=== PATIENT | male | born 1945 | race Caucasian/White ===

== ENCOUNTER 2017-05-21 18:51 | Emergency (ER) | payer MEDICARE, BC ==
--- NOTE | 2017-05-21 20:04 | ER PHYSICIAN DOCUMENTATION ---
Physician Documentation [facility] Name:Ronnell Hale Age:71 yrs Sex:Male :1945 Arrival Date:05/21/2017 Time:18:51 Bed3 Private MD:Physician, No ED Olayinka Jaffe Disposition: 05/21/17 19:47 Discharged to Home/Self Care. Impression: BPH (Benign Prostatic Hypertrophy), Anal Fissure. - Condition is Good. - Discharge Instructions: Adenoma, Prostatic - BPH (Enlarged Prostate). - Prescriptions for Flomax 0.4 mg Oral Capsule, Sust. Release 24 hr - take 1 capsule by ORAL route once daily 1/2 hour following the same meal each day; 30 capsule. - Medical Reconciliation form form. - Follow up: Seferino Tillman MD; When: 1 week; Reason: Recheck today's complaints, Continuance of care. - Problem is new. - Symptoms are resolved. - Notes: Drink plenty of fluids.... Take Flomax as directed. Use Tucks Medicated Pads for cleansing the anal region and pain relief.... Use Proctosol-HC Cream to anal region two times a day for 7 days. Continue using Metamucil to keep your stools soft. Eat prunes and Bran Bread / Cereal. HPI: 05/21 18:53 This 71 yrs old Male presents to ER via Walk In with complaints of difficulty cd urinating, hx of enlarged prostratr. 18:53 The patient presents with urinary symptoms, dribbling of urine, retention, difficulty cd urinating. He also complains of rectal pain due to a hemorrhoid and constipation. Onset: The symptom(s)/episode began/occurred acutely, today. Modifying factors: The symptoms are alleviated by nothing, the symptoms are aggravated by urinating. Associated signs and symptoms: Pertinent positives: abdominal pain, constipation, Pertinent negatives: diarrhea, dysuria, fever, nausea, vomiting. Severity of symptoms: At their worst the symptoms were moderate, in the emergency department the symptoms are unchanged. The patient has not experienced similar symptoms in the past. Historical: - Allergies: Tenormin; - Home Meds: 1. Coumadin Oral 2. carvedilol oral 3. Aspirin Oral 4. Lipitor Oral 5. Niacin Oral 6. hctz/lisinopril - PMHx: CAD; Hypertension; HIGH CHOLESTEROL; - PSHx: CABG; HERNIA REPAIR; PACEMAKER; - Tetanus: < 10 years. - Ebola Screening: : Patient denies exposure to infectious person. Patient denies travel to an Ebola-affected area in the 21 days before illness onset. . - Immunization history: Flu Vaccine < 1 year. - Social history: Smoking status: Patient states was never smoker of tobacco. Patient uses alcohol but reports only rare drinking. - Code Status:: Full code. ROS: 19:10 Cardiovascular: Negative for chest pain, palpitations, edema and pleuritic pain. cd Respiratory: Negative for shortness of breath, dyspnea on exertion, cough, sputum production, wheezing, hemoptysis and pleuritic chest pain. Back: Negative for injury, pain or muscle spasms. MS/Extremity: Negative for injury, deformity, edema, calf tenderness, pain or coldness. Skin: Negative for injury, rash, itching and discoloration. 19:10 Neuro: Negative for headache, weakness, numbness, tingling, and seizure. cd 19:10 Constitutional: Positive for poor PO intake, Negative for chills, fever. 19:10 Abdomen/GI: Positive for constipation, rectal pain, Negative for abdominal pain, nausea, vomiting, diarrhea, abdominal distension, anorexia, hematemesis, black/tarry stool, rectal bleeding. 19:10 : Positive for urinary frequency, difficulty urinating. 19:10 All other systems are negative. Exam: ENT: Nares patent. No nasal discharge, no septal abnormalities noted. Tympanic membranes are normal and external auditory canals are clear. Oropharynx with no redness, swelling, or masses, exudates, or evidence of obstruction, uvula midline. Mucous membranes moist. Neck: Trachea midline, no thyromegaly or masses palpated, and no cervical lymphadenopathy. Supple, full range of motion without nuchal rigidity, or vertebral point tenderness. No Meningismus. Chest/axilla: Normal chest wall appearance and motion. Nontender with no deformity. No lesions are appreciated. Cardiovascular: Regular rate and rhythm with a normal S1 and S2. No gallops, murmurs, or rubs. Normal PMI, no JVD. No pulse deficits. Respiratory: Lungs have equal breath sounds bilaterally, clear to auscultation and percussion. No rales, rhonchi or wheezes noted. No increased work of breathing, no retractions or nasal flaring. Abdomen/GI: Soft, non-tender, with normal bowel sounds. No distension or tympany. No guarding or rebound. No evidence of tenderness throughout. Back: No spinal tenderness. No costovertebral tenderness. Full range of motion. Skin: Warm, dry with normal turgor. Normal color with no rashes, no lesions, and no evidence of cellulitis. MS/ Extremity: Pulses equal, no cyanosis. Neurovascular intact. Full, normal range of motion. 19:10 Neuro: Awake and alert, GCS 15, oriented to person, place, time, and situation. cd Cranial nerves II-XII grossly intact. Motor strength 5/5 in all extremities. Sensory grossly intact. Cerebellar exam normal. Normal gait. 19:10 Constitutional: The patient appears alert, awake, non-diaphoretic, non-toxic, well developed, well nourished, comatose, in obvious distress, moderately distressed. 19:10 : CVA tenderness, is absent, Male external genitalia: normal, Bladder: distension, that is mild, tenderness, that is mild, Rectal exam: Rectal tone: normal, Stool: brown, soft, Prostate: enlarged, Guaiac testing: results were negative for occult blood. Vital Signs: 19:24 BP 164 / 78; Pulse 60; Resp 20; Temp 97.5(O); Pulse Ox 92% on R/A; Weight 108.41 kg; lb Height 6 ft. (182.88 cm); Pain 5/10; 20:02 BP 158 / 70; Pulse 65; Resp 17; Pain 4/10; lb 19:24 Body Mass Index 32.41 (108.41 kg, 182.88 cm) lb MDM: 19:15 Differential diagnosis: UTI, urinary retention, prostatitis, constipation. Data cd reviewed: vital signs, nurses notes, old medical records, lab test result(s), urinalysis, and as a result, I will discharge patient. Data interpreted: Pulse oximetry: on room air is 92 %. Interpretation: normal. 19:27 Patient medically screened. cd 19:45 Counseling: I had a detailed discussion with the patient and/or guardian regarding: the cd historical points, exam findings, and any diagnostic results supporting the discharge/admit diagnosis, lab results, the need for outpatient follow up, for a recheck, with the patient's primary care provider, to return to the emergency department if symptoms worsen or persist or if there are any questions or concerns that arise at home. Response to treatment: the patient's symptoms have markedly improved after treatment, the patient's condition has returned to base line, and as a result, I will discharge patient. 05/21 19:27 Order name: Urine Dip; Complete Time: 20:03 cd Dispensed Medications: No medications were administered Point of Care Testing: Guaiac: 19:24 Stool Guaiac: Negative; Stool Hemoccult Control: Pass; lb Urine Dip: 19:38 pH: 5.5; ; Specific [place]: 1.030; Ketones: Negative; Glucose: Negative; Protein: lb Negative; Leukocytes: Negative; Nitrite: Negative ; Blood: Negative; Bilirubin: Negative ; Urobilinogen: Normal Signatures: Olayinka Marrero MD MD cd Bollock, Lynda lb
--- NOTE | 2017-05-21 20:04 | ER NURSING DOCUMENTATION ---
Nurse's Notes [facility] Name:Ronnell Hale Age:71 yrs Sex:Male :1945 Arrival Date:05/21/2017 Time:18:51 Bed3 Private MD:Physician, No Diagnosis:BPH (Benign Prostatic Hypertrophy);Anal Fissure Presentation: 05/21 18:53 Acuity: MARS 3 sc1 19:04 Presenting complaint: Patient states: difficulty urinating today, c/o lower abd pain lb radiates to rectum. hx of enlarged prostate, hemmorhoid with difficulty moving bowels due to pain. Transition of care: Camp. Notified ED Physician of Dr. Marrero notified. Care prior to arrival: None. 19:04 Method Of Arrival: Walk In lb Triage Assessment: 19:10 General: Appears uncomfortable, Behavior is appropriate for age, pleasant. Pain: lb Complains of pain in right lower quadrant and left lower quadrant Pain radiates to buttocks Pain currently is 5 out of 10 on a pain scale. Quality of pain is described as sharp. Neuro: No deficits noted. Cardiovascular: No deficits noted. Respiratory: Airway is patent Trachea midline Respiratory effort is even, unlabored, Respiratory pattern is regular, Breath sounds are clear bilaterally. GI: Abdomen is obese, Bowel sounds present X 4 quads. Abd is soft and non tender. : no distension of bladder noted. Derm: No deficits noted. Musculoskeletal: No deficits noted. Historical: - Allergies: Tenormin; - Home Meds: 1. Coumadin Oral 2. carvedilol oral 3. Aspirin Oral 4. Lipitor Oral 5. Niacin Oral 6. hctz/lisinopril - PMHx: CAD; Hypertension; HIGH CHOLESTEROL; - PSHx: CABG; HERNIA REPAIR; PACEMAKER; - Tetanus: < 10 years. - Ebola Screening: : Patient denies exposure to infectious person. Patient denies travel to an Ebola-affected area in the 21 days before illness onset. . - Immunization history: Flu Vaccine < 1 year. - Social history: Smoking status: Patient states was never smoker of tobacco. Patient uses alcohol but reports only rare drinking. - Code Status:: Full code. Screenin:26 Infectious Disease Risk None. Abuse screen: Denies threats or abuse. Denies injuries lb from another. Nutritional screening: No deficits noted. Assessment: 19:25 See Triage Assessment done by same RN. General: Appears uncomfortable, Behavior is lb appropriate for age, pleasant. Pain: Complains of pain in right lower quadrant and left lower quadrant Pain radiates to gluteal cleft Pain currently is 5 out of 10 on a pain scale. Quality of pain is described as sharp. Neuro: No deficits noted. EENT: No deficits noted. Cardiovascular: No deficits noted. Respiratory: No deficits noted. GI: Abdomen is obese, Bowel sounds present X 4 quads. Abd is soft and non tender. Vital Signs: 19:24 BP 164 / 78; Pulse 60; Resp 20; Temp 97.5(O); Pulse Ox 92% on R/A; Weight 108.41 kg; lb Height 6 ft. (182.88 cm); Pain 5/10; 20:02 BP 158 / 70; Pulse 65; Resp 17; Pain 4/10; lb 19:24 Body Mass Index 32.41 (108.41 kg, 182.88 cm) ED Course: 18:52 Patient arrived in ED. ma1 18:52 Physician, No is Private Physician. [facility] 18:54 Triage completed. me1 19:04 Carey Diaz is Primary Nurse. lb 19:26 Valuables Remains with patient Patient has correct armband on for positive lb identification. Placed in gown. Bed in low position. Side rails up X 1. 19:27 Olayinka Marrero MD is Attending Physician. cd 19:47 Seferino Tillman MD is Referral Physician. cd Administered Medications: No medications were administered Point of Care Testing: Guaiac: 19:24 Stool Guaiac: Negative; Stool Hemoccult Control: Pass; lb Urine Dip: 19:38 pH: 5.5; ; Specific [place]: 1.030; Ketones: Negative; Glucose: Negative; Protein: lb Negative; Leukocytes: Negative; Nitrite: Negative ; Blood: Negative; Bilirubin: Negative ; Urobilinogen: Normal Outcome: 19:47 Discharge ordered by . cd 20:02 Discharged to [facility] 20:02 Condition: good 20:02 Discharge Assessment: Patient awake, alert and oriented x 3. No cognitive and/or functional deficits noted. Patient verbalized understanding of disposition instructions. 20:02 Instructed on discharge instructions, follow up and referral plans. 20:03 Patient left the ED. 05/22 14:33 Discharge F/U Call: Spoke with: patient. other: Name: pt is feeling better today then st he was last night. pt will make a fallow up next week and start the RX tonight. Signatures: Lucia Roberts, Concepcion Cary RN, RN RN sc1 Olayinka Marrero MD MD cd Bollock, Lynda lb Addison, Michelle [facility]
== END 2017-05-21 20:04 | disposition home or self-care (01) ==
LOC: ER 18:51
DX: N40.1 Benign prostatic hyperplasia with lower urinary tract symptoms (principal); R33.9 Retention of urine, unspecified; K60.2 Anal fissure, unspecified; K59.00 Constipation, unspecified; I10 Essential (primary) hypertension; I25.10 Atherosclerotic heart disease of native coronary artery without angina pectoris; Z95.1 Presence of aortocoronary bypass graft; Z79.01 Long term (current) use of anticoagulants; Z79.899 Other long term (current) drug therapy
CPT/HCPCS: 85610; 99282; 99283

== ENCOUNTER 2017-05-24 12:26 | Emergency (ER) | payer MEDICARE, BC ==
--- NOTE | 2017-05-24 14:50 | ER PHYSICIAN DOCUMENTATION ---
Physician Documentation [facility] Name:Ronnell Hale Age:71 yrs Sex:Male :1945 Arrival Date:05/24/2017 Time:12:26 Bed1 Private MD: Edgard Buck Disposition: 05/26 08:20 Chart complete. tl1 Disposition: 05/24/17 14:43 Discharged to Home/Self Care. Impression: Hypotension. - Condition is Good. - Discharge Instructions: HYPOTENSION, All Causes, HYPOTENSION, Orthostatic. - Medical Reconciliation form form. - Follow up: Private Physician; When: 4- 6 days; Reason: Recheck today's complaints, Continuance of care. - Problem is new. - Symptoms have improved. - Notes: STOP THE HCTZ/LISINOPRIL IN THE EVENINGS FOR NOW. CHECK AND RECORD YOUR BLOOD PRESSURES 3 TIMES A DAY. MAKE SURE TO SEE A UROLOGIST WITHIN THE NEXT 2-[address]. FOLLOW UP WITH DR SPENCE PREVIOUSLY SCHEDULED. HPI: 05/24 12:39 This 71 yrs old Male presents to ER with complaints of Blood Pressure Problem.tl1 12:40 Since starting flomax 2 days ago, his blood pressures in the morning have been low, in tl1 the mid 80s, systolic and he has been symptomatic with that. He will lay down for a few hours and his BP comes up and he feels better. he has no other complaints. No f/c/s or other infectious symptoms. No N/V or GI bleeding.. Historical: - Allergies: Tenormin; - Home Meds: 1. Coumadin Oral 2. carvedilol oral 3. Aspirin Oral 4. Lipitor Oral 5. Niacin Oral 6. hctz/lisinopril - PMHx: CAD; HYPERTENSION; HIGH CHOLESTEROL; BPH (Benign Prostatic Hypertrophy)(May 21, 2017); Anal Fissure (May 21, 2017); - PSHx: CABG; HERNIA REPAIR; PACEMAKER; - Tetanus: < 10 years. - Ebola Screening: : Patient denies travel to an Ebola-affected area in the 21 days before illness onset. No symptoms or risks identified at this time. . - Immunization history: Flu Vaccine < 1 year. - Social history: Smoking status: . ROS: 12:40 Cardiovascular: Negative for chest pain, orthopnea, palpitations, paroxysmal nocturnal tl1 dyspnea. 12:40 All other systems are negative. Exam: 12:40 Constitutional: This is a well developed, well nourished patient who is awake, alert, tl1 and in no acute distress. 12:40 Head/Face: Normocephalic, atraumatic. tl1 12:40 Cardiovascular: Rate: normal, Rhythm: regular. 12:40 Respiratory: Respirations: normal. 12:40 Skin: Exam negative for acute changes. 12:40 Neuro: Orientation: is normal, Mentation: is normal, Memory: is normal, Cranial nerves: grossly normal, Motor: moves all fours, Gait: is steady, at a normal pace, without difficulty, appropriate for age. Vital Signs: 12:33 BP 153 / 71; Pulse 66; Resp 14; Temp 97.5(O); Pulse Ox 95% on R/A; Weight 104.78 kg arc (R); Height 6 ft. 0 in. (182.88 cm) (R); Pain 2/10; 12:37 BP 154 / 62 (auto/); lc 12:45 BP 126 / 55 (auto/); lc 13:01 BP 152 / 64 (auto/); lc 13:15 BP 151 / 57 (auto/); lc 14:49 Pain 0/10; lc 12:33 Body Mass Index 31.33 (104.78 kg, 182.88 cm) arc MDM: 12:38 Patient medically screened. tl1 14:00 Data reviewed: vital signs, nurses notes, and as a result, I will discharge patient. tl1 Data interpreted: Pulse oximetry: on room air is 95 %. Counseling: I had a detailed discussion with the patient and/or guardian regarding: the historical points, exam findings, and any diagnostic results supporting the discharge/admit diagnosis, the need for outpatient follow up, to return to the emergency department if symptoms worsen or persist or if there are any questions or concerns that arise at home, He should decrease his evening HCTZ / Lisinopril to a half a pill or stop it entirely, for now.. Dispensed Medications: No medications were administered Point of Care Testing: Urine Dip: 14:12 pH: 5.5; ; Specific [place]: 1.020; Ketones: Negative; Glucose: Negative; Protein: sj Negative; Leukocytes: Negative; Nitrite: Negative ; Blood: Hemolyzed Trace; Bilirubin: Negative ; Urobilinogen: Normal Signatures: Glendy Newman, OLEGARIO RN Edgard Turner MD MD tl1 Manda De La Cruz
--- NOTE | 2017-05-24 14:50 | ER NURSING DOCUMENTATION ---
Nurse's Notes [facility] Name:Ronnell Hale Age:71 yrs Sex:Male :1945 Arrival Date:05/24/2017 Time:12:26 Bed1 Private MD: Diagnosis:Hypotension Presentation: 05/24 12:31 Acuity: MARS 5 lc 12:37 Presenting complaint: Patient states: SEEN IN ED 2 DAYS AGO, STARTED ON FLOMAX. SINCE lc C/O FEELING LIGHT HEADED WITH A LOW BP OF 84/60 THIS AM. CONCERNED THE MED IS DROPPING HIS BP'S. ALSO HAD RECENT WT LOSS AND IS CUTTING BACK ON HIS BP MEDS ALREADY. Transition of care: Camp. 12:37 Method Of Arrival: Private Vehicle Triage Assessment: 12:41 General: Appears in no apparent distress, Behavior is appropriate for age, cooperative. lc Pain: Denies pain. Neuro: Level of Consciousness is awake, alert, Oriented to person, place, time, event. Cardiovascular: Capillary refill < 3 seconds. Derm: Skin is pink, warm & dry. Historical: - Allergies: Tenormin; - Home Meds: 1. Coumadin Oral 2. carvedilol oral 3. Aspirin Oral 4. Lipitor Oral 5. Niacin Oral 6. hctz/lisinopril - PMHx: CAD; HYPERTENSION; HIGH CHOLESTEROL; BPH (Benign Prostatic Hypertrophy)(May 21, 2017); Anal Fissure (May 21, 2017); - PSHx: CABG; HERNIA REPAIR; PACEMAKER; - Tetanus: < 10 years. - Ebola Screening: : Patient denies travel to an Ebola-affected area in the 21 days before illness onset. No symptoms or risks identified at this time. . - Immunization history: Flu Vaccine < 1 year. - Social history: Smoking status: . Screenin:42 Infectious Disease Risk None. Abuse screen: Denies threats or abuse. Denies injuries lc from another. Nutritional screening: No deficits noted. Assessment: 12:42 See Triage Assessment done by same RN. Vital Signs: 12:33 BP 153 / 71; Pulse 66; Resp 14; Temp 97.5(O); Pulse Ox 95% on R/A; Weight 104.78 kg arc (R); Height 6 ft. 0 in. (182.88 cm) (R); Pain 2/10; 12:37 BP 154 / 62 (auto/); lc 12:45 BP 126 / 55 (auto/); lc 13:01 BP 152 / 64 (auto/); lc 13:15 BP 151 / 57 (auto/); lc 14:49 Pain 0/10; lc 12:33 Body Mass Index 31.33 (104.78 kg, 182.88 cm) arc ED Course: 12:27 Patient arrived in ED. jt 12:30 Glendy Newman RN is Primary Nurse. 12:31 Triage completed. 12:38 Edgard Knight MD is Attending Physician. tl1 12:42 Valuables Remains with patient Patient has correct armband on for positive lc identification. Bed in low position. Call light in reach. Adult w/ patient. 12:43 NIBP On - RN Monitoring Only. lc Administered Medications: No medications were administered Point of Care Testing: Urine Dip: 14:12 pH: 5.5; ; Specific [place]: 1.020; Ketones: Negative; Glucose: Negative; Protein: sj Negative; Leukocytes: Negative; Nitrite: Negative ; Blood: Hemolyzed Trace; Bilirubin: Negative ; Urobilinogen: Normal Outcome: 14:43 Discharge ordered by . tl1 14:49 Discharged to home ambulatory, with significant other. 14:49 Condition: good 14:49 Discharge Assessment: Patient awake, alert and oriented x 3. No cognitive and/or functional deficits noted. Patient verbalized understanding of disposition instructions. 14:49 Discharge instructions given to patient, significant other, Instructed on discharge instructions, follow up and referral plans. medication usage, Demonstrated understanding of instructions, medications. 14:49 Recheck visit only other BP RECHECK WITH MED QUESTIONS 14:50 Patient left the ED. lc Signatures: Glendy Newman, OLEGARIO RN Edgard Turner MD MD tl1 John, Shelby, Reg Reg [facility] Deanna Spring Sarah sj
== END 2017-05-24 14:50 | disposition home or self-care (01) ==
LOC: ER 12:26
DX: I95.9 Hypotension, unspecified (principal); I25.10 Atherosclerotic heart disease of native coronary artery without angina pectoris; N40.0 Benign prostatic hyperplasia without lower urinary tract symptoms; Z79.899 Other long term (current) drug therapy; Z95.0 Presence of cardiac pacemaker; Z79.01 Long term (current) use of anticoagulants; Z79.82 Long term (current) use of aspirin
CPT/HCPCS: 99281; 99282